=== PATIENT | male | born 1960 | race Caucasian/White ===

== ENCOUNTER 2022-09-15 08:54 | Day surgery (SDC) | payer BC ==
[~2022-09-15] VITALS: Ht 177.8 cm; Wt 113.4 kg
[~2022-09-15 08:54] MED LIST: ASPIRIN ADULT L81 M2 PO; LIPITOR40 M1 PO; LOSARTAN/HCT1 TA1 PO; MULTI VIT PO
[2022-09-15 11:25] VITALS: BP 157/108
== END 2022-09-15 11:20 | disposition home or self-care (01) | DRG 392 ==
LOC: ENDO 08:54 → ORM 09:00 → ENDO 09:00
PROVIDERS: ATTEND Surgery
PROC: 0DJD8ZZ Inspection of Lower Intestinal Tract, Via Natural or Artificial Opening Endoscopic (ICD-10-PCS; principal; 2022-09-15)
DX: K57.30 Diverticulosis of large intestine without perforation or abscess without bleeding (principal); K64.8 Other hemorrhoids; I10 Essential (primary) hypertension; Z80.0 Family history of malignant neoplasm of digestive organs; Z86.010 Personal history of colon polyps